=== PATIENT | female | born 1975 | race Native Hawaiian/Other Pacific Islander ===

== ENCOUNTER 2017-10-04 08:35 | Outpatient (CLI) | payer OTHER | END 2017-10-04 19:02 | disposition home or self-care (01) | LOC: MAMMO 08:35 | DX: Z12.31 Encounter for screening mammogram for malignant neoplasm of breast (principal) ==

== ENCOUNTER 2019-07-14 15:29 | Outpatient (CLI) | payer BC | END 2019-07-14 18:00 | disposition home or self-care (01) | LOC: MAMMO 15:29 | DX: Z12.31 Encounter for screening mammogram for malignant neoplasm of breast (principal) ==

== ENCOUNTER 2022-02-01 16:01 | Outpatient (CLI) | payer BC | END 2022-02-01 22:29 | disposition home or self-care (01) | LOC: US 16:01 | PROVIDERS: ATTEND Internal Medicine | DX: R79.89 Other specified abnormal findings of blood chemistry (principal); E04.9 Nontoxic goiter, unspecified ==

== ENCOUNTER 2022-08-17 09:05 | Outpatient (CLI) | payer BC | END 2022-08-17 19:23 | disposition home or self-care (01) | LOC: MAMMO 09:05 | PROVIDERS: ATTEND Obstetrics & Gynecology | DX: Z12.31 Encounter for screening mammogram for malignant neoplasm of breast (principal) ==